=== PATIENT | female | born 2000 | race Caucasian/White ===

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

== ENCOUNTER → 2022-02-11 | Outpatient (REF) | payer OTHER ==
[~2022-02-11] MED LIST: CETI10CH PO; MONT10TA97 PO; VENTAER IN
== END ==
LOC: M WUC 18:51
PROVIDERS: ATTEND Student in an Organized Health Care Education/Training Program
DX: J02.9 Acute pharyngitis, unspecified (principal)

== ENCOUNTER 2025-05-19 18:58 | Outpatient (CLI) | payer OTHER ==
[~2025-05-19] VITALS: Ht 162.6 cm; Wt 69.8 kg
[2025-05-19] MEDS ORDERED: PRENTAB9 PO (19:12)
[2025-05-19] MEDS ORDERED: IRON27TA2 PO (19:12)
[2025-05-19] MEDS ORDERED: ASPI81CH33 PO (19:12)
[2025-05-19 19:15] VITALS: BP 125/61
== END 2025-05-19 20:11 | disposition home or self-care (01) ==
LOC: M LDO 18:58
PROVIDERS: ATTEND Advanced Practice Midwife
DX: O36.8120 Decreased fetal movements, second trimester, not applicable or unspecified (principal); Z3A.24 24 weeks gestation of pregnancy; Z88.5 Allergy status to narcotic agent; Z88.8 Allergy status to other drugs, medicaments and biological substances; Z91.010 Allergy to peanuts
CPT/HCPCS: 59025; G0463